=== PATIENT | male | born 1940 | race Caucasian/White ===

== ENCOUNTER 2022-06-14 15:15 | Outpatient (CLI) | payer MEDICARE, BC, SELFPAY ==
[2022-06-14 14:08] LABS: Iron* 122 ug/dL (49-181)
[2022-06-14 14:17] LABS: Percent Iron Saturation 43 % (20-50); Total Iron Binding Capacity 284 ug/dL (261-462)
[2022-06-14 16:54] LABS: Vitamin B12* 202 pg/mL (243-894)
[2022-06-18 15:44] LABS: Albumin* 4.5 g/dL (3.3-5.0); Chloride* 103 mmol/L (96-114)
[2022-06-18 15:45] LABS: Potassium* 4.5 mmol/L (3.6-5.1); Sodium* 139 mmol/L (135-149)
[2022-06-18 15:47] LABS: Alanine Aminotransferase* 22 U/L (4-50); Alkaline Phosphatase* 87 U/L (40-150); Aspartate Amino Transferase* 31 U/L (12-35); Bilirubin Total* 0.7 mg/dL (0.1-1.5); Blood Urea Nitrogen* 23 mg/dL (7-30); Carbon Dioxide* 24 mmol/L (20-32); Creatinine* 1.7 mg/dL (0.5-1.5); Estimated Glomerular Filt Rate 40 ml/min; Glucose* 97 mg/dL (60-115); Total Protein* 7.5 g/dL (6.0-8.3)
[2022-06-18 15:48] LABS: Calcium* 9.8 mg/dL (8.4-10.6)
[2022-06-18 16:23] LABS: PSA Screen* < 0.06 ng/mL (0.10-4.00)
== END 2022-06-14 15:16 | disposition home or self-care (01) ==
PROVIDERS: PCP Family Medicine; Visit Provider Family Medicine
DX: Z00.00 Encounter for general adult medical examination without abnormal findings (principal); D64.9 Anemia, unspecified; I48.91 Unspecified atrial fibrillation; Z12.5 Encounter for screening for malignant neoplasm of prostate
CPT/HCPCS: 80053; 82607; 82728; 83540; 83550; 84153

== ENCOUNTER 2022-07-10 09:43 | Outpatient (CLI) | payer MEDICARE, BC, SELFPAY | END 2022-07-10 09:44 | disposition home or self-care (01) | LOC: LKVREF 09:43 | PROVIDERS: PCP Family Medicine; Visit Provider Family Medicine | DX: I48.91 Unspecified atrial fibrillation (principal) | CPT/HCPCS: 80053; 82728 ==

== ENCOUNTER 2022-08-14 10:32 | Outpatient (CLI) | payer MEDICARE, BC, SELFPAY ==
[2022-08-14 22:38] LABS: Vitamin B12* 635 pg/mL (243-894)
== END 2022-08-14 10:33 | disposition home or self-care (01) ==
LOC: LKVREF 10:33
PROVIDERS: PCP Family Medicine; Visit Provider Family Medicine
DX: D51.9 Vitamin B12 deficiency anemia, unspecified (principal)
CPT/HCPCS: 82607

== ENCOUNTER 2024-06-10 13:56 | Outpatient (CLI) | payer MEDICARE, BC, SELFPAY | END 2024-06-10 13:57 | disposition home or self-care (01) | PROVIDERS: PCP Family Medicine; Visit Provider Physician Assistant Medical | DX: D51.9 Vitamin B12 deficiency anemia, unspecified (principal); D64.9 Anemia, unspecified; E78.5 Hyperlipidemia, unspecified; I10 Essential (primary) hypertension; Z13.29 Encounter for screening for other suspected endocrine disorder | CPT/HCPCS: 80053; 80061; 82607; 82746; 83540; 83550; 84443; 87086 ==

== ENCOUNTER 2025-02-01 15:57 | Outpatient (CLI) | payer MEDICARE, BC, SELFPAY | END 2025-02-01 15:58 | disposition home or self-care (01) | PROVIDERS: PCP Family Medicine; Visit Provider Physician Assistant Medical | DX: M25.532 Pain in left wrist (principal) | CPT/HCPCS: 84550; 86038; 86140; 86200; 86431; 86618; 86812 ==

== ENCOUNTER 2025-07-26 12:34 | Outpatient (CLI) | payer MEDICARE, BC, SELFPAY | END 2025-07-26 12:35 | disposition home or self-care (01) | PROVIDERS: PCP Family Medicine; Visit Provider Family Medicine | DX: D51.9 Vitamin B12 deficiency anemia, unspecified (principal); E78.5 Hyperlipidemia, unspecified; I10 Essential (primary) hypertension; I25.10 Atherosclerotic heart disease of native coronary artery without angina pectoris; N28.9 Disorder of kidney and ureter, unspecified; Z78.9 Other specified health status | CPT/HCPCS: 80053; 80061; 82607; 82728; 84443; G0103 ==

== ENCOUNTER 2025-08-05 14:11 | Outpatient (CLI) | payer MEDICARE, BC, SELFPAY ==
--- NOTE | 2025-08-05 14:30 | CRLHL7_ITS ---
For Patients: As a result of the Cures Act, medical imaging exams and procedure reports are released immediately into your electronic medical record. You may view this report before your referring provider. If you have questions, please contact your health care provider. INDICATION: Unsteadiness TECHNIQUE: Noncontrast Sagittal T1,Axial FSE T2, Flair, SWI, DWI images submitted. No comparisons. FINDINGS: Moderate cerebral atrophy. There is mild prominence of the lateral 3rd ventricles with the 3rd ventricle demonstrating loss of its normal waist. There is evidence of hyperdynamic flow through the cerebral aqueduct within the 3rd ventricle. The 4th ventricle appears within normal limits. 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 Chronic lacunar infarct in the posterior right centrum semiovale and right mccloud radiata. Chronic lacunar infarct of the left basal ganglia. The sulci and gyri are of normal size, shape and contour for age and degree of atrophy. Midline structures are centrally located. No convincing evidence of suspicious intra- or extra-axial fluid collections. Mild patchy regions of increased T2 signal within the periventricular and subcortical white matter of both cerebral hemispheres. No regions of restricted diffusion. Linear region of susceptibility involving the subcortical white matter of the anterior right frontal lobe that may represent residua from distant hemorrhage. IMPRESSION: 1. No radiographic evidence of acute intracranial abnormalities. 2. Moderate cerebral atrophy. There is mild prominence of the lateral and 3rd ventricles that may represent a component of communicating hydrocephalus such as NPH. 3. Chronic infarcts of both cerebral hemispheres, left basal ganglia, right mccloud radiata and posterior right centrum semiovale. 4. Mild supratentorial white matter changes that are non-specific, but statistically most likely related to chronic small vessel ischemic disease. 5. Linear region of susceptibility involving the subcortical white matter of the right frontal lobe likely representing residua from distant hemorrhage. Dictated by Rafat Peña MD @ 08/05/2025 5:58:35 PM (Electronically Signed)
== END 2025-08-05 14:12 | disposition home or self-care (01) ==
LOC: MRI 14:14
PROVIDERS: PCP Family Medicine; Visit Provider Family Medicine
DX: R26.81 Unsteadiness on feet (principal); G31.9 Degenerative disease of nervous system, unspecified; I63.9 Cerebral infarction, unspecified; R53.83 Other fatigue; R29.6 Repeated falls; I25.10 Atherosclerotic heart disease of native coronary artery without angina pectoris; I48.91 Unspecified atrial fibrillation; Z86.73 Personal history of transient ischemic attack (TIA), and cerebral infarction without residual deficits
CPT/HCPCS: 70551

== ENCOUNTER 2025-08-19 16:20 | Outpatient (CLI) | payer MEDICARE, BC, SELFPAY | END 2025-08-19 16:21 | disposition home or self-care (01) | LOC: AMB 08-21 22:12 | PROVIDERS: PCP Family Medicine; Visit Provider Student in an Organized Health Care Education/Training Program | DX: S79.911A Unspecified injury of right hip, initial encounter (principal); W01.0XXA Fall on same level from slipping, tripping and stumbling without subsequent striking against object, initial encounter; Y93.H9 Activity, other involving exterior property and land maintenance, building and construction; Y92.007 Garden or yard of unspecified non-institutional (private) residence as the place of occurrence of the external cause | CPT/HCPCS: A0425; A0427 ==